=== PATIENT | male | born 1950 | race Caucasian/White ===

== ENCOUNTER 2024-02-13 09:38 | Day surgery (SDC) | payer MEDICARE ==
[2024-02-12 09:53] VITALS: BMI 32.3
[2024-02-13 10:28] VITALS: TEMP 97.1
[2024-02-13] MEDS: IV FLUID CONTINUATION 1,000 ML IV ONE (10:32)
[2024-02-13] MEDS: LACTATED RINGERS 1,000 ML IV SCH (10:42)
[2024-02-13] MEDS ORDERED: PROPOFOL 10 MG/ML 20 ML VIAL IV ONE (11:20)
--- NOTE | 2024-02-13 11:35 | P.PCN ---
Date of Procedure: 02/13/24 Procedure(s) Performed: BRIEF HISTORY: Patient is a 73-year-old pleasant white male scheduled for an elective colonoscopy as a part of a lesion millimeter rectal pain for the last several months duration. PROCEDURE PERFORMED: Colonoscopy with snare polypectomy. PREOPERATIVE DIAGNOSIS: Intermittent rectal bleeding. IV sedation per Anesthesia. PROCEDURE: After informed consent was obtained, the patient, was brought into the endoscopy unit. IV sedation was administered by Anesthesia under continuous monitoring. Digital rectal examination was normal. Initially the Olympus CF-160 flexible video colonoscope was then inserted in the rectum, gradually advanced into the cecum without any difficulty. Careful examination was performed as the scope was gradually being withdrawn. Ileocecal valve and the appendiceal orifice were visualized and appeared normal. Prep was excellent. There was a 5 mm no nbleeding arteriovenous malformation in the base of the cecum. Mucosa of the cecum had a 1 similar flat polyp that was removed by snare polypectomy. Rest of the, ascending colon, transverse colon, descending colon, sigmoid colon, and rectum appeared normal. Retroflexion was performed in the rectum and small internal hemorrhoids were seen. The patient tolerated the procedure well. 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 He was advised to follow-up with the biopsy results. If the biopsy reveals adenoma he can have repeat colonoscopy in 3 years..
[2024-02-13 12:02] VITALS: BP 139/82; PULSE 63; RESP 18
== END 2024-02-13 12:09 | disposition home or self-care (01) ==
LOC: ORWHC2ENDO 09:38
PROVIDERS: ATTEND Internal Medicine Gastroenterology
DX: K63.5 Polyp of colon (principal); K64.8 Other hemorrhoids; Q27.30 Arteriovenous malformation, site unspecified; Z98.890 Other specified postprocedural states
CPT/HCPCS: 45385; 88305